=== PATIENT | male | born 1995 | race Caucasian/White ===

== ENCOUNTER 2018-06-16 10:17 | Emergency (ER) | payer MEDICAID, OTHER ==
[2018-06-16] MEDS ORDERED: ACETAMINOPHEN 500 MG TAB PO ONE (10:54)
[2018-06-16] MEDS ORDERED: ACETAMINOPHEN 500 MG TAB ONE (10:59)
--- NOTE | 2018-06-16 11:05 | EDPHY ---
General Time Seen by Provider: 06/16/18 10:54 Narrative: CHIEF COMPLAINT: Sore throat, sores on my tongue and mouth HISTORY OF PRESENT ILLNESS: Patient presented prior vehicle with mother with complaints of sore throat and sores on his mouth throat. He states that this started approximately 4 days ago mild at 1st, quickly progressing to moderate severe. The source popped up within a day on the tongue, his mouth and back of throat. He was seen 2 days ago at [facility] with reportedly negative rapid strep test. He has been taking symptomatic medications including ibuprofen and cannabis. The symptoms do improve with these. He has some headache and neck pain. No neck stiffness. No chest pain or shortness of breath. No cough. No abdominal pain. No rash. No other associated complaints or modifying factors. REVIEW OF SYSTEMS: 10 systems were reviewed and negative with the exception of the elements mentioned in the history of present illness. PCP: [facility] SPECIALISTS: None PAST MEDICAL HISTORY: Denies PAST SURGICAL HISTORY: Denies SOCIAL HISTORY: Daily tobacco and marijuana use. Occasional alcohol use. Works in the cannabis industry FAMILY HISTORY: Noncontributory EXAMINATION: General Appearance: Alert, no distress. Conversing in complete sentences. Nontoxic Head: normocephalic, atraumatic Eyes: Pupils equal and round, no conjunctival pallor or injection ENT, Mouth: Mucous membranes moist. Uvula is midline. There are ulcerations of the oral mucosa, tip of the tongue and posterior pharynx with a central area of clearing with surrounding red halo. No vesicular lesions. There are tonsillar exudates symmetrically. Symmetric enlargement of the tonsils. No trismus. Voice is not muffled. Neck: Normal inspection. Midline trachea. Paraspinous tenderness. No midline tenderness. No step-off, crepitus or deformity. Painless range of motion all planes. No meningismus. Respiratory: Lungs are clear to auscultation Cardiovascular: Regular rate and rhythm Gastrointestinal: Abdomen is soft and nontender Back: non-tender, no bony abnormalities Neurological: A&O, nonfocal, normal gait Skin: Warm and dry, no rash no petechiae or purpura. Extremities: Nontender, no pedal edema Psychiatric: Mood and affect normal DIFFERENTIAL DIAGNOSES: Including but not limited to viral pharyngitis, strep pharyngitis, aphthous ulcer, infectious mononucleosis, HSV MDM: 11:00 a.m. Acute stomatitis and exudate of pharyngitis. No trismus. No drooling. No muffled voice. Neck is supple without meningismus. He does present with 1 vital signs of tachycardia and fever, but repeat vital signs are normal with no SIRS. I have ordered IV placement for IV fluid resuscitation. We will check for mono, strep. Symptomatic medications ordered. He is in no acute distress. 11:40 a.m. Rapid strep test negative. Rooks test pending 12:20 p.m. Rooks test is negative. I have re-evaluated the patient. He is tolerating intake by mouth or difficulty. No vomiting. No neck stiffness. No headache. Vital signs have normalized after his IV fluid. He is afebrile. We discussed his stomatitis, glossitis and pharyngitis. There is no evidence of vesicular lesion. These do appear to be aphthous ulcers with unknown viral etiology. We discussed symptomatic medications including viscous lidocaine. We discussed follow up on the strep test tomorrow. If positive will need antibiotics. If negative continue symptomatic care. We discussed ED precautions for chest pain , shortness of breath, neck stiffness for persistent fever or sudden headache. He is comfortable this plan and discharged home stable condition. SUPERVISION: This patient was independently evaluated without direct involvement of or examination by the attending physician. CONSULTATION: None - History Smoking Status: Current every day smoker - Objective Vital Signs: Initial Vital Signs Temperature (C) 100.4 F 06/16/18 10:18 Heart Rate 108 H 06/16/18 10:18 Respiratory Rate 16 06/16/18 10:18 Blood Pressure 86/58 L 06/16/18 10:18 O2 Sat (%) 98 06/16/18 10:18 O2 Delivery Mode Room Air Allergies/Adverse Reactions: No Known Allergies Allergy (Unverified 06/16/18 10:22) Home Medications: Medication Instructions Recorded Lidocaine 2% Viscous 5 ml MM TID PRN #100 ml 06/16/18 Medications Given: Discontinued Medications Acetaminophen (Tylenol) 1,000 mg PO EDNOW ONE Stop: 06/16/18 10:55 Last Admin: 06/16/18 10:57 Dose: 1,000 mg Dexamethasone (Decadron Injection) 10 mg IVP EDNOW ONE Stop: 06/16/18 11:07 Last Admin: 10/26/18 11:22 Dose: 10 mg Sodium Chloride (Ns) 1,000 mls @ 0 mls/hr IV EDNOW ONE; Wide Open PRN Reason: Protocol Stop: 06/16/18 11:07 Last Admin: 06/16/18 11:21 Dose: 1,000 mls Lidocaine (Lidocaine 2% Viscous) 5 ml PO EDNOW ONE Stop: 06/16/18 11:08 Last Admin: 06/16/18 12:26 Dose: Not Given Promethazine HCl (Phenergan) 12.5 mg IVP ONCE ONE Stop: 06/16/18 11:08 Last Admin: 06/16/18 11:23 Dose: Not Given Departure - Departure Disposition: Home, Routine, Self-Care Clinical Impression: Stomatitis and mucositis Pharyngitis Qualifiers: Pharyngitis/tonsillitis etiology: unspecified etiology Qualified Code(s): J02.9 - Acute pharyngitis, unspecified Condition: Good Instructions: Pharyngitis (ED), Oral Mucositis (ED), Gingivostomatitis (ED) Additional Instructions: 1. Ibuprofen 600 mg every 6-8 hours as needed for pain 2. Viscous lidocaine as prescribed as. Swish and spit. 3. Increase fluid intake the next few days 4. Return here for any severe headache, neck stiffness, persistent fever, chest pain or shortness of breath 5. You may continue your symptomatic medications of choice as needed Referrals: [facility],. [Clinic] - As per Instructions Physician,Emergency Dept, [Medical Doctor] - As per Instructions Stand Alone Forms: Work Excuse Prescriptions: Lidocaine 2% Viscous 5 ml MM TID PRN #100 ml PRN Reason: mouth pain
[2018-06-16] MEDS ORDERED: NS 1,000 ML IV ONE (11:06)
[2018-06-16] MEDS ORDERED: DEXAMETHASONE 10 MG/ML VIAL IVP ONE (11:06)
[2018-06-16] MEDS ORDERED: PROMETHAZINE HCL 25 MG/ML INJ IVP ONE (11:07)
[2018-06-16] MEDS ORDERED: LIDOCAINE 2% VISCOUS 15 ML UDCUP PO ONE (11:07)
[2018-06-16] MEDS ORDERED: DEXAMETHASONE 4 MG/ML VIAL ONE (11:19)
[2018-06-16 12:26] VITALS: BP 109/51
[2018-06-16 16:19] LABS: GROUP A STREP DNA (THROAT) POSITIVE (NEGATIVE)
== END 2018-06-16 12:50 | disposition home or self-care (01) ==
DX: K12.1 Other forms of stomatitis (principal); K12.30 Oral mucositis (ulcerative), unspecified; J02.9 Acute pharyngitis, unspecified; E86.9 Volume depletion, unspecified; F17.200 Nicotine dependence, unspecified, uncomplicated
CPT/HCPCS: 96374; J1100; J2550